=== PATIENT | male | born 1940 | race Caucasian/White ===

== ENCOUNTER 2018-03-08 09:23 | Inpatient (IN) | payer MEDICARE, SELFPAY ==
[2018-02-17 12:40] VITALS: BMI 24.2
[2018-03-08] VITALS (12 sets, daily range): BP systolic 121–151; BP diastolic 63–92; PULSE 65–78; RESP 14–20; TEMP 35.8–37.1; O2SAT 95–98; BMI 23.1
--- NOTE | 2018-03-08 | DI.RAD.S_ITS ---
PROCEDURE: XR PELVIS 1-2V INDICATIONS: LEFT TOTAL HIP TECHNIQUE: 1 view of the lower pelvis acquired. COMPARISON: [facility] Hugo, CR, XR PELVIS WITH LATERAL HIP LEFT, 02/01/2018, 11:12. FINDINGS: Bones: Patient is status post left hip arthroplasty, with hardware components in expected positions. The hip joint appears congruent. The visualized bony structures appear intact. Prior total right hip arthroplasty unchanged. Soft tissues: Overlying postoperative changes are noted. No suspicious soft tissue densities. IMPRESSION: Acute postoperative changes total left hip arthroplasty. Dictated by: Dm Wasserman M.D. on 03/08/2018 at 13:40 Approved by: Dm Wasserman M.D. on 03/08/2018 at 13:41
[2018-03-08] MEDS: CELECOXIB 200 MG CAPSULE PO (10:00)
[2018-03-08] MEDS: PREGABALIN 75 MG CAPSULE PO (10:00)
[2018-03-08] MEDS: ACETAMINOPHEN 325 MG TABLET 975 MG PO (10:00)
[2018-03-08] MEDS: LACTATED RINGERS 1,000 ML 42 ML IV (10:18)
--- NOTE | 2018-03-08 11:46 | PM.PREOP ---
Pre-operative Note Interval Note Pre-op Check: Yes History & Physical Reviewed by Physician Changes: No
[2018-03-08] MEDS: CEFAZOLIN 2 GM/100 ML FROZ.PIGGY IV ×2 (11:50→21:20)
--- NOTE | 2018-03-08 12:34 | SUR.OPER ---
Lateral on padded OR bed. Gel axillary roll. Arms secured on padded armboard with pillow supporting top arm. Padded hip positioner braces x4 - anterior and posterior chest and pelvis. Additional gel pad used anterior pelvis. Gel pad under bottom leg from knee to foot and secured with tape over sheet.
[2018-03-08] MEDS: BUPIVACAINE 0.25% W/ EPI VIAL 50 ML INJ (12:41)
--- NOTE | 2018-03-08 13:39 | PM.OP.1 ---
Operative Date/Time/Diagnoses Date of procedure: 03/08/18 Time of procedure: 13:39 Pre-op diagnosis: Left hip degenerative joint disease Post-op diagnosis: same Procedure & Clinicians Procedure: Left total hip arthroplasty (CPT code 71652 with administrative personal assistant) Same procedure as scheduled: Yes Indications: Patient is an 78-year-old male with severe left hip DJD. The patient has pain with activities and at rest, limited ambulation and activity tolerance, difficulties with ADLs, and failure of conservative treatment. We have discussed the nature of condition, treatment options, risks and benefits, and patient elects to proceed with total hip arthroplasty and gives informed consent. Surgeon: Tahir Urias Budget Report Clerk: Luzma Harris Anesthesia Type: General and Spinal Operative Notes Closure Type: primary Specimen(s): none sent Implants & Drains: Acetabulum: Vences and Nephew R3 acetabular component size 56 mm Femoral component: Vences and Nephew Synergy stem size 12 with high offset Femoral head: 36 mm + 0 cobalt chrome Estimated Blood Loss (mL): 100 Blood products transfused: none Procedure in detail: After satisfaction induction of anesthetic, and administration of IV antibiotics, the patient was positioned in the lateral decubitus position with all bony prominences well padded and pelvic position secured using a hip back padder positioning device. Left hip and lower extremity prepped and draped in the usual sterile fashion, 1st dose of intravenous tranexamic acid was administered, then a longitudinal incision was created centered over the greater trochanter and carried sharply through the skin and subcutaneous tissues down to the fascia tammi which was divided longitudinally and retracted with a Charnley retractor. External rotators visualize, cut, tagged, and retracted posteriorly, then the capsule was cut in a T-type fashion with the corners tagged and retracted. Hip was dislocated and femoral neck cut made according to preoperative templating. Acetabular retractors then placed, and the acetabular labrum and osteophytes were excised. The acetabulum was then sequentially reamed to 55 mm with an excellent circumferential ream and fit with the trial. The trial component was removed and a permanent size 56 mm Vences and Nephew R3 acetabular component was selected, positioned, and impacted with satisfactory position and fixation achieved. Permanent liner was then inserted with the elevated lip directed posteriorly. Soft tissue then removed off the lateral femoral neck in the lateral neck was entered using a box osteotome. T-handled reamers placed down the canal followed by sequential broaching to 12 with the final broach left in place for trial reduction which demonstrated excellent leg length, range of motion, and stability characteristics with a 36 mm +0 trial ball, and high offset neck combination. The trial and broach were removed, and a permanent size 12 high offset Vences and Nephew Synergy stem was selected and inserted with excellent position and fixation achieved. Another trial reduction yielded the above characteristics so the trial ball was exchanged for a permanent 36 mm +0 cobalt chrome ball. The hip was irrigated and reduced and excellent leg length range of motion and stability characteristics were achieved and maintained. The hip was copiously irrigated, and the capsule repaired with #2 Ethibond, and the piriformis was repaired back to the greater trochanter with the same. Fascia tammi closed with interrupted #1 Ethibond sutures, and the subcutaneous tissues were closed in 2 layers of 0 Vicryl and 2 0 Vicryl. Skin was closed with joya and sterile dressings applied. Second dose of tranexamic acid was administered intravenously, and the anesthetic was terminated. Complications: none Condition: stable Disposition: PACU Plan for aftercare: Patient will be admitted to the acute care ma, and anticipate discharge on postop day 1 or 2 with follow-up in office in 10-14 days. Outpatient physical therapy will be arranged and patient will continue to observe posterior hip precautions. Patient will continue use of postoperative Lovenox for 10 days postop.
--- NOTE | 2018-03-08 13:43 | P.OP_ITS ---
Operative Date/Time/Diagnoses Date of procedure: 03/08/18 Time of procedure: 13:39 Pre-op diagnosis: Left hip degenerative joint disease Post-op diagnosis: same Procedure & Clinicians Procedure: Left total hip arthroplasty (CPT code 07291 with orthotics prosthetics assistant) Same procedure as scheduled: Yes Indications: Patient is an 78-year-old male with severe left hip DJD. The patient has pain with activities and at rest, limited ambulation and activity tolerance, difficulties with ADLs, and failure of conservative treatment. We have discussed the nature of condition, treatment options, risks and benefits, and patient elects to proceed with total hip arthroplasty and gives informed consent. Surgeon: Tahir Urias Hand Box Folder: Luzma Harris Anesthesia Type: General and Spinal Operative Notes Closure Type: primary Specimen(s): none sent Implants & Drains: Acetabulum: Vences and Nephew R3 acetabular component size 56 mm Femoral component: Vences and Nephew Synergy stem size 12 with high offset Femoral head: 36 mm + 0 cobalt chrome Estimated Blood Loss (mL): 100 Blood products transfused: none Procedure in detail: After satisfaction induction of anesthetic, and administration of IV antibiotics, the patient was positioned in the lateral decubitus position with all bony prominences well padded and pelvic position secured using a hip plate cutter positioning device. Left hip and lower extremity prepped and draped in the usual sterile fashion, 1st dose of intravenous tranexamic acid was administered, then a longitudinal incision was created centered over the greater trochanter and carried sharply through the skin and subcutaneous tissues down to the fascia tammi which was divided longitudinally and retracted with a Charnley retractor. External rotators visualize, cut, tagged, and retracted posteriorly, then the capsule was cut in a T-type fashion with the corners tagged and retracted. Hip was dislocated and femoral neck cut made according to preoperative templating. Acetabular retractors then placed, and the acetabular labrum and osteophytes were excised. The acetabulum was then sequentially reamed to 55 mm with an excellent circumferential ream and fit with the trial. The trial component was removed and a permanent size 56 mm Vences and Nephew R3 acetabular component was selected, positioned, and impacted with satisfactory position and fixation achieved. Permanent liner was then inserted with the elevated lip directed posteriorly. Soft tissue then removed off the lateral femoral neck in the lateral neck was entered using a box osteotome. T-handled reamers placed down the canal followed by sequential broaching to 12 with the final broach left in place for trial reduction which demonstrated excellent leg length, range of motion, and stability characteristics with a 36 mm +0 trial ball, and high offset neck combination. The trial and broach were removed, and a permanent size 12 high offset Vences and Nephew Synergy stem was selected and inserted with excellent position and fixation achieved. Another trial reduction yielded the above characteristics so the trial ball was exchanged for a permanent 36 mm +0 cobalt chrome ball. The hip was irrigated and reduced and excellent leg length range of motion and stability characteristics were achieved and maintained. The hip was copiously irrigated, and the capsule repaired with #2 Ethibond, and the piriformis was repaired back to the greater trochanter with the same. Fascia tammi closed with interrupted #1 Ethibond sutures, and the subcutaneous tissues were closed in 2 layers of 0 Vicryl and 2 0 Vicryl. Skin was closed with joya and sterile dressings applied. Second dose of tranexamic acid was administered intravenously , and the anesthetic was terminated. Complications: none Condition: stable Disposition: PACU Plan for aftercare: Patient will be admitted to the acute care ma, and anticipate discharge on postop day 1 or 2 with follow-up in office in 10-14 days. Outpatient physical therapy will be arranged and patient will continue to observe posterior hip precautions. Patient will continue use of postoperative Lovenox for 10 days postop.
[2018-03-08] MEDS: LACTATED RINGERS 1,000 ML 125 ML IV ×2 (14:36→22:31)
--- NOTE | 2018-03-08 15:34 | PC.ADMIT ---
[address] Admission Note: Pt admitted from PACU s/p L hip surgery. Pt with spinal during surgery. Denies pain. No movement and numb in BLE. Pt denies nausea, tolerating pudding and ice water. Pt's at bedside. Instructed in IS and instructed to call for help with ambulating. Also instructed about using urinal and not ambulating until his sensation returns to normal. Bed alarm on, call light within reach. Report given to oncoming RN. The patient,Darien Ruelas,78 y/o, was given written information regarding hospital policies, unit procedures and contact persons. Patient's smoking status: Former smoker. Vital Signs - 8 hr 03/08/18 10:01 03/08/18 13:20 03/08/18 13:25 Temperature 97.2 F L 98.8 F 98.5 F Pulse Rate 73 71 78 Respiratory Rate 16 14 14 Blood Pressure 151/92 H 133/72 H 121/68 H Pulse Oximetry 97 98 97 03/08/18 13:30 03/08/18 13:40 03/08/18 13:58 Temperature 98.5 F 98.4 F 96.5 F L Pulse Rate 68 68 71 Respiratory Rate 14 14 17 Blood Pressure 133/63 H 124/64 H 129/72 H Pulse Oximetry 98 96 95 03/08/18 14:28 03/08/18 14:58 Temperature 96.4 F L 96.7 F L Pulse Rate 65 71 Respiratory Rate 16 16 Blood Pressure 122/71 H 134/78 H Pulse Oximetry 97
[2018-03-08] MEDS: ONDANSETRON 4 MG ODT PO (22:00)
--- NOTE | 2018-03-08 22:31 | PC.NURSE ---
Evening Shift Note Pt A&O, VSS, 97% on RA. Numbness in lower extremities, able to wiggle toes, now CMS intact. No complaints of pain. Tolerating diet w/o N/V, towards end of shift had episode of nausea/emesis x1, Zofran given x1, no further episodes. Pt unable to void, bladder scanned at 1900 volume of greater than 500cc, pt attempted to void several times, unable to due so and at 2130 straight cathed w/ an output of 900cc. Pt able to get out of bed this evening w/ 1 person assist and FWW. Dressing C/D/I. R FA PIV w/ LR @ 125.
[2018-03-09] MEDS: CEFAZOLIN 2 GM/100 ML FROZ.PIGGY IV ×2 (04:55→13:09)
[2018-03-09 06:12] LABS: Hematocrit 37.4 % (41-53); Hemoglobin 12.9 g/dL (13.5-17.5)
[2018-03-09 06:20] VITALS: BP 127/77; PULSE 78; RESP 16; TEMP 36.7; O2SAT 97
[2018-03-09 07:58] VITALS: BP 130/68; PULSE 86; RESP 16; TEMP 36.6; O2SAT 97
--- NOTE | 2018-03-09 08:29 | P.DS_ITS ---
History of Present Illness Date Patient Seen: 03/09/18 Time Patient Seen: 08:12 Chief complaint: total hip arthroplasty left 19073 Narrative: Patient is seen bedside status post left AMBER postop day 1. Patient is doing well as the pain is well controlled he has no complaints of nausea vomiting shortness of breath or chest pain. He has been up with physical therapy and is moving well. He did have some urinary retention overnight however he is now voiding. Discharge Providers Date of admission: 03/08/18 09:23 Consults: 03/08/18 14:01 Consult to Discharge Planning Routine Comment: Consult to Physical Therapy Evaluate & Treat Comment: Physician Instructions: post op AMBER protocol Consult to Respiratory Therapy Evaluate & Treat Comment: Physician Instructions: Evaluate and treat Discharge provider: Fiona Chou PA-C Summary Discharge Diagnosis: Left hip osteoarthritis Hospital Course: Patient was admitted status post left AMBER on 03/08/2018. Patient tolerated the procedure well with no major complications. Patient was transferred to the acute care floor where he was seen by Physical therapy and recommended for discharge home with outpatient PT. He is stable and ready for discharge on 03/09/2018. He will go home with Lovenox for DVT prophylaxis and oxycodone for pain. Follow up in the office as previously scheduled Status at Discharge Cognitive/behavioral status at discharge: Alert and oriented x4 Functional status at discharge: uses cane/walker Overall status at discharge: patient is progressing back to baseline Time Spent with Patient Less than 30 minutes Exam Vital Signs (past 8 hours): - 03/09/18 06:20 03/09/18 07:58 Temperature 98.0 F 98 F Pulse Rate 78 86 Respiratory Rate 16 16 Blood Pressure 127/77 H 130/68 H Pulse Oximetry 97 97 Oxygen Delivery Method Room Air Oxygen Flow Rate 0 Narrative Exam Narrative: Patient is well-developed well-nourished in no acute distress. Patient alert oriented x3. Examination left hip dressing is clean dry and intact with no signs of discharge. He has full range of motion of the knee and ankle. His calf is soft compressible on this side. He is neurovascularly intact in this extremity. Objective Labs Result Diagrams: 03/09/18 05:57 Labs: Laboratory Results - last 24 hr 03/09/18 05:57 Hgb 12.9 L Hct 37.4 L Discharge Plan Discharge Plan Patient Disposition: Home, Self-Care Discharge Med Rec/Prescriptions Prescriptions: New aspirin 81 mg Tablet,Delayed Release (Dr/Ec) 81 mg PO BID Qty: 0 RF: 0 hydroxyzine pamoate 25 mg Capsule 25 mg PO Q6HR PRN (Reason: Spasms) Qty: 0 RF: 0 enoxaparin [Lovenox] 40 mg/0.4 mL Syringe 40 mg Sub-Q DAILY Qty: 4 RF: 0 oxycodone 5 mg Tablet 5 mg PO Q4HR PRN (Reason: Pain, Severe (7-10)) Qty: 0 RF: 0 Continue metformin 500 mg Tablet 500 mg PO QAM RF: 0 diphenhydramine-acetaminophen [Acetaminophen PM] 25-500 mg Tablet 2 tab PO BEDTIME RF: 0 Discontinued aspirin 81 mg Tablet,Delayed Release (Dr/Ec) 81 mg PO QPM RF: 0 Follow up/Referrals: [facility] [Provider Group] - 03/15/18 2:20 pm (Follow up with Elliott Pinto PA-C at the [facility] [phone]) Provider Discharge Instructions Diet: Diet as Tolerated Activity: WBAT, follow posterior hip precautions, use walker until cleared by PT Cold/Heat Therapy: Ice for 20 minutes at a time at least hourly Wound Care Report to your healthcare provider any signs of infection, such as:: chills, fever, night sweats, increased pain and unusual drainage Dressing: Keep dressing clean, dry, and intact until follow up visit. Visit Report/Discharge Packet Instructions: DI for Hip Replacement Visit Report Forms: Stroke Signs & Symptoms Discharge Data Attending Provider: Tahir Urias Admit Date/Time: 03/08/18 09:23
[2018-03-09] MEDS: ENOXAPARIN 40 MG/0.4 ML SYRINGE SUBCUT (09:11)
[2018-03-09] MEDS: METFORMIN HCL 500 MG TABLET PO (09:11)
[2018-03-09] MEDS: ASPIRIN EC 81 MG TABLET PO (09:11)
--- NOTE | 2018-03-09 10:33 | CM.DANOTE ---
Discharge Planning/Care Management DCP: assessment: case received, EMR reviewed and met with pt and his Vonnie at 0800. Introduced self and role. Pt is a 78 year old male who admitted yesterday for a planned L AMBER. Arrived to floor from PACU on evening shift. Surgeon: Dr. Urias Payer: Medicare and [facility] At time of this discussion pt had not yet worked with PT. PT will see pt this morning. OT order is obtained. Pt and Vonnie identify their d/c goal as home to [place] when he is able to mobilize safely. Vonnie is able to provide supportive assist. P: check in prn and follow to assist with d/c needs as these are identified. CM Discharge Assessment Start: 03/09/18 10:29 Freq: Status: Active Protocol: Document 03/09/18 10:29 ITV (Rec: 03/09/18 10:32 ITV [id number]) Discharge Planning Assessment History Provided By Patient Family Member Medical Record Is this patient on Medicare? Yes Prior Living Arrangements Mobile home Household Members spouse Independent with ADL's Yes Is patient alert and oriented? Yes Comment OT and PT will see pt today and assess DME needs Transportation Arrangement spouse at bedside. will drive pt home when ready to leave Review Status In Process Next Review Type Continued Stay Review
--- NOTE | 2018-03-09 11:18 | OT.IP.TRT ---
Current Diagnoses Unilateral primary osteoarthritis, left hip (03/08/18) Surgery Performed Operation Date: 03/08/18 12:15 Actual Procedures p Total Hip Arthroplasty(Left) - Tahir Urias MD Occupational Therapy Treatment Note M3 OT- IP Subjective and Pain Start: 03/09/18 11:14 Freq: Status: Active Protocol: Document 03/09/18 11:14 [facility]3] (Rec: 03/09/18 11:18 [facility]3] [id number]) OT- Subjective Occupational Therapy Visit Type Type Treatment Note Visit Start Time 11:00 Visit Stop Time 11:13 Total Visit Minutes 13 Notes Pt here for LTHA and per pt had RTHA 2 years ago, pt and pt's have good understanding for all hip precautions and have all AED for ADL needs. Pt able to use the bathroom with supervision. Therefore discharge from OT services. Pt to go home with when stable.
--- NOTE | 2018-03-09 11:40 | PT.IIE ---
Current Diagnoses Unilateral primary osteoarthritis, left hip (03/08/18) Surgery Performed Operation Date: 03/08/18 12:15 Actual Procedures p Total Hip Arthroplasty(Left) - Tahir Urias MD Surgical History (Last Reviewed 03/09/18 @ 08:27 by Juhi Pacheco, PT) History of arthroplasty of left knee (Acute) History of thumb surgery (Acute) History of total right hip arthroplasty (Acute) Hx of hand surgery (Acute) Hx of left inguinal hernia repair (Acute) Medical History (Last Reviewed 03/09/18 @ 08:27 by Juhi Pacheco, PT) Compressed vertebrae (Acute) Diabetes (Acute) HTN (hypertension) (Acute) Hyperlipidemia (Acute) Physical Therapy Inpatient Evaluation/Re-Eval M1 PT/OT-IP Prior Functional Status Start: 03/09/18 11:14 Freq: NEEDED Status: Active Protocol: Document 03/09/18 11:24 DLM (Rec: 03/09/18 11:40 DLM [id number]) Medical Review Prior Functional Status Medical History Reviewed Yes Diet/Fluid Consistency Regular Communication WNL, hard of hearing with aides Mobility and Gait Independent, difficulty with stand to sit due to difficulty with right knee and bending in general Activities of Daily Living and IADL's Independent Prior Functional Level (Other details) attended out-pt PT in the past Social History Household Members spouse Living Arrangements Mobile home Number of Floors (Floors) One Floor Number of Stairs To Enter/Railing? 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 M2 PT-IP Current Condition Start: 03/09/18 11:24 Freq: NEEDED Status: Active Protocol: Document 03/09/18 11:24 DLM (Rec: 03/09/18 11:40 DLM [id number]) Physical Therapy Current Condition Current Condition Evaluation Date 03/09/18 Treatment Diagnosis left AMBER, impaired gait Onset Date 03/08/18 Precautions Posterior Hip Precautions No Hip Flexion > 90 degrees No Hip Internal Rotation No Hip Adduction Weight Bearing Status Weight Bearing Status Weight Bear as Tolerated M3 PT-IP Subjective Start: 03/09/18 11:24 Freq: NEEDED Status: Active Protocol: Document 03/09/18 11:24 DLM (Rec: 03/09/18 11:40 [facility] [id number]) Subjective Physical Therapy Visit Type Type Initial Evaluation Visit Start Time 10:30 Visit Stop Time 10:57 Total Visit Minutes 27 Number of CARTRIDGE [employer]ER Visits 0 Physical Therapy Visit Comments Patient Comments He hopes to go home today Therapy Pain Assessment Pain When Pain Assessed During Mobility Pain Present Pain Present Pain Reported Location Left Hip Intensity 3 Scale Used Numeric (1 - 10) Description Aching M4 PT-IP Mobility and Gait Start: 03/09/18 11:24 Freq: NEEDED Status: Active Protocol: Document 03/09/18 11:24 DLM (Rec: 03/09/18 11:40 [facility] [id number]) PT-Bed Mobility Assessment Supine to Sit Supine to Sit Standby Assistance Scooting Scooting to Edge of Bed Standby Assistance PT-Transfer Assessment Sit to and From Stand Sit to and from Stand Contact Guard Assistance Equipment Transfer Assistive Device Gait Belt Front Wheeled Walker Transfers Transfer Destination Chair Transfer Technique Stand Step Pivot Transfer Ability Level of Assist Contact Guard Assistance Gait Assessment Gait Gait Assistance Required: Standby Assistance Distance (Feet) (feet) 12 Able to Maintain Weight Bearing Status Yes During Gait Assistive Devices Assistive Device Gait Belt Front Wheeled Walker Gait Deviations General Gait Pattern Antalgic Factors Limiting Gait Function Factors Limiting Gait Function Decreased Activity Tolerance Decreased Strength Pain PT-Balance Assessment Sitting Balance and Reactions Static Sitting Balance Ability Normal Dynamic Sitting Balance Ability Good Standing Balance and Reactions Static Standing Balance Ability Good Dynamic Standing Balance Ability Good Device Used FWW M5 PT-IP Objective Assessments Start: 03/09/18 11:24 Freq: NEEDED Status: Active Protocol: Document 03/09/18 11:24 DLM (Rec: 03/09/18 11:40 [facility] [id number]) Orientation Orientation/Cognition Level of Alertness Alert Orientation Name Age Birthday Month Date Year Day of Week Place Situation Language Function Ability No Deficits Noted Safety Awareness Understands Safety Issues Memory Description No Deficits Noted Comments glasses Gross Range of Motion Upper Extremity ROM Assessment Within Functional Limits Lower Extremity ROM Assessment Left Impaired Impairments post-op restrictions with pain in hip Strength Upper Extremity Strength Assessment Within Functional Limits Lower Extremity Strength Assessment Right Impaired Hip left hip flex 3-/5 Knee left knee 4-/5, right knee 4/5 Ankle left DF 5/5 Comments Strength Comments pain left LE post-op Coordination Assessment Gross Coordination Gross Coordination WNL Sensation Assessment Sensation Gross Sensation WNL Muscle Tone Muscle Tone WNL Yes M6 PT-IP Treatment Start: 03/09/18 11:24 Freq: NEEDED Status: Active Protocol: Document 03/09/18 11:24 DLM (Rec: 03/09/18 11:40 DLM [id number]) Physical Therapy Treatment Exercises Exercises Ankle Pumps Gluteal Sets Quad Sets Heel Slides Supine Hip Abduction Education Education Provided Precautions Weight Bearing Status Post-Op Packet Safety Equipment Issued Equipment Type and Company hip was present for training M7 PT-IP Assessment and Plan Start: 03/09/18 11:24 Freq: NEEDED Status: Active Protocol: Document 03/09/18 11:24 DLM (Rec: 03/09/18 11:40 DLM [id number]) PT Summary Assessment and Plan Potential Rehabilitation Potential Excellent Status of Condition at Evaluation Evolving Summary Impairments Pain ROM Strength Balance Bed Mobility Transfers Gait Activity Tolerance Assessment Summary He is tolerating activity well post-op day one. He is eager to return home. He needs reminders for his post hip precautions during mobility. Anticipate he will need one more physical therapy visit than possible discharge later today. Goals Bed Mobility Goal Independent Transfer Goal Independent Front Wheeled Walker Gait Goal Independent Front Wheel Walker Gait Distance 100 feet Other Goals up and down 3 steps with rail and cane with SBA Days to Meet Goals 2 Frequency of Treatment Frequency Of Treatment Twice a Day Treatment Plan Physical Therapy Treatment Plan Bed Mobility Training Transfer Training Gait Training Therapeutic Exercise Balance Retraining Post Op Education Discharge Planning Hot or Cold Pack Recommendations To Nursing Amount of Assist Needed 1 Person Assist Discharge Recommendations PT Discharge Recommendations Home with Assistance Outpatient PT
[2018-03-09] MEDS: HYDROCODONE/ACET 5/325 TABLET 1 TAB PO (11:41)
[2018-03-09 11:49] VITALS: BP 137/63; PULSE 91; RESP 18; TEMP 36.9; O2SAT 97
--- NOTE | 2018-03-09 14:11 | PT.IPTN ---
Current Diagnoses Unilateral primary osteoarthritis, left hip (03/08/18) Surgery Performed Operation Date: 03/08/18 12:15 Actual Procedures p Total Hip Arthroplasty(Left) - Tahir Urias MD Physical Therapy Treatment Note M2 PT-IP Current Condition Start: 03/09/18 11:24 Freq: NEEDED Status: Discharge Protocol: Document 03/09/18 11:24 DLM (Rec: 03/09/18 11:40 DL [id number]) Physical Therapy Current Condition Current Condition Evaluation Date 03/09/18 Treatment Diagnosis left AMBER, impaired gait Onset Date 03/08/18 Precautions Posterior Hip Precautions No Hip Flexion > 90 degrees No Hip Internal Rotation No Hip Adduction Weight Bearing Status Weight Bearing Status Weight Bear as Tolerated M3 PT-IP Subjective Start: 03/09/18 11:24 Freq: NEEDED Status: Discharge Protocol: Document 03/09/18 14:11 DLM (Rec: 03/09/18 16:01 [facility] [id number]) Subjective Physical Therapy Visit Type Type Treatment Note Visit Start Time 13:35 Visit Stop Time 14:11 Total Visit Minutes 36 Physical Therapy Visit Comments Patient Comments He feels he is safe to discharge home today No light-headedness when up Therapy Pain Assessment Pain When Pain Assessed During Mobility Pain Present Pain Present Pain Reported Location Left Hip Intensity 3 Scale Used Numeric (1 - 10) Description Aching Pain Management Techniques Apply Cold Re-positioning M4 PT-IP Mobility and Gait Start: 03/09/18 11:24 Freq: NEEDED Status: Discharge Protocol: Document 03/09/18 14:11 DL (Rec: 03/09/18 16:01 [facility] [id number]) PT-Bed Mobility Assessment Supine to Sit Supine to Sit Independent Sit to Supine Sit to Supine Independent Scooting Scooting to Edge of Bed Independent PT-Transfer Assessment Sit to and From Stand Sit to and from Stand Independent Use of Upper Extremities Equipment Transfer Assistive Device Gait Belt Front Wheeled Walker Transfers Transfer Destination Chair Transfer Technique Stand Step Pivot Transfer Ability Level of Assist Independent Gait Assessment Gait Gait Assistance Required: Independent Distance (Feet) (feet) 120 Able to Maintain Weight Bearing Status Yes During Gait Assistive Devices Assistive Device Gait Belt Front Wheeled Walker Gait Deviations General Gait Pattern Antalgic Step-to Gait Factors Limiting Gait Function Factors Limiting Gait Function Decreased Strength Pain Stair Climbing Assessment Evaluation Level of Assist On Stairs Standby Assistance Devices Stair Climbing Assistive Devices Left Railing Right Railing Technique/Endurance Stair Climbing Direction Ascend and Descend Stair Climbing Technique Step to Step Number of Steps Climbed 3 Query Text: Stair Climbing Set # Repetitions (reps) 1 PT-Balance Assessment Sitting Balance and Reactions Static Sitting Balance Ability Normal Dynamic Sitting Balance Ability Normal Standing Balance and Reactions Static Standing Balance Ability Good Dynamic Standing Balance Ability Good Device Used FWW M5 PT-IP Objective Assessments Start: 03/09/18 11:24 Freq: NEEDED Status: Discharge Protocol: Document 03/09/18 11:24 DLM (Rec: 03/09/18 11:40 DL [id number]) Orientation Orientation/Cognition Level of Alertness Alert Orientation Name Age Birthday Month Date Year Day of Week Place Situation Language Function Ability No Deficits Noted Safety Awareness Understands Safety Issues Memory Description No Deficits Noted Comments glasses Gross Range of Motion Upper Extremity ROM Assessment Within Functional Limits Lower Extremity ROM Assessment Left Impaired Impairments post-op restrictions with pain in hip Strength Upper Extremity Strength Assessment Within Functional Limits Lower Extremity Strength Assessment Right Impaired Hip left hip flex 3-/5 Knee left knee 4-/5, right knee 4/5 Ankle left DF 5/5 Comments Strength Comments pain left LE post-op Coordination Assessment Gross Coordination Gross Coordination WNL Sensation Assessment Sensation Gross Sensation WNL Muscle Tone Muscle Tone WNL Yes M6 PT-IP Treatment Start: 03/09/18 11:24 Freq: NEEDED Status: Discharge Protocol: Document 03/09/18 14:11 DLM (Rec: 03/09/18 16:01 [facility] [id number]) Physical Therapy Treatment Exercises Exercises Ankle Pumps Gluteal Sets Quad Sets Heel Slides Supine Hip Abduction Education Education Provided Precautions Weight Bearing Status Post-Op Packet Safety M7 PT-IP Assessment and Plan Start: 03/09/18 11:24 Freq: NEEDED Status: Discharge Protocol: Document 03/09/18 14:11 DLM (Rec: 03/09/18 16:01 [facility] [id number]) PT Summary Assessment and Plan Summary Progress Towards Goals Safe For Discharge Goals Met Assessment Summary He is progressing well this visit. He continues to need verbal cues for his hip precautions. His verbalizes a good understanding of his precautions. He tolerated gait and stairs well. He demonstrates a safe gait pattern with the FWW. He appears safe to discharge home with his . Frequency of Treatment Frequency Of Treatment Discharge Recommendations To Nursing Amount of Assist Needed Standby Assistance Discharge Recommendations PT Discharge Recommendations Home with Assistance Outpatient PT
--- NOTE | 2018-03-09 14:55 | PC.NURSE ---
Discharge Note: Discharge orders received this am pending PT eval and pt being able to void without difficulty. Pt able to void 3 x this shift for > 500 ml. Pt worked with PT x2 and was cleared to discharge home. Pt still had bulky dressing on from surgery. Ortho clinic contacted and orders received to change dressing. Dressing changed and pt helped to dress. Discharge teaching provided including, mobility, diet and medications. Pt helped to main entrance via wheelchair by nursing professor.
== END 2018-03-09 15:04 | disposition home or self-care (01) | DRG 470 ==
PROVIDERS: Admitting Provider Orthopaedic Surgery; Visit Provider Orthopaedic Surgery
PROC: 0SRB0JZ Replacement of Left Hip Joint with Synthetic Substitute, Open Approach (ICD-10-PCS; CPT 27130; principal; 2018-03-08 12:15)
DX: M16.12 Unilateral primary osteoarthritis, left hip (principal); I10 Essential (primary) hypertension; Z96.641 Presence of right artificial hip joint; Z96.652 Presence of left artificial knee joint; E11.9 Type 2 diabetes mellitus without complications; Z79.84 Long term (current) use of oral hypoglycemic drugs
CPT/HCPCS: 36415; 36592; 72170; 82962; 85014; 85018; 97110; 97116; 97162; 97530; C1776; J0690; J1650; J2250; J2274; J2405; J2704; J3010